=== PATIENT | male | born 1960 | race Caucasian/White ===

== ENCOUNTER 2017-07-11 08:11 | Day surgery (SDC) | payer MEDICAID, OTHER ==
[2017-07-11] MEDS ORDERED: LIDOCAINE 1% 2 ML INJ ONE (08:30)
[2017-07-11] MEDS ORDERED: LR 1,000 ML IV ONE (08:52)
[2017-07-11] MEDS ORDERED: LIDOCAINE 1% 2 ML INJ ID PRN (08:52)
[2017-07-11] MEDS ORDERED: PROPOFOL/EMULSION 500 MG/50 ML BOTTLE IV ONE (08:56)
[2017-07-11] MEDS ORDERED: fentaNYL 100 MCG/2 ML INJ ONE (08:56)
[2017-07-11] MEDS ORDERED: LIDOCAINE 2% 100 MG/5 ML SYR ONE (08:56)
--- NOTE | 2017-07-11 08:58 | PDANEPAE ---
ANE Past Medical History - Cardiovascular History Hx Hypertension: No Hx Arrhythmias: No Hx Chest Pain: No Hx Coronary Artery / Peripheral Vascular Disease: No Hx CHF / Valvular Disease: No Hx Palpitations: No - Pulmonary History Hx COPD: No Hx Asthma/Reactive Airway Disease: Yes Hx Recent Upper Respiratory Infection: No Hx Oxygen in Use at Home: No Hx Sleep Apnea: No Sleep Apnea Screening Result - Last Documented: Negative - Neurologic History Hx Cerebrovascular Accident: No Hx Seizures: No Hx Dementia: No Neurologic History Comment: SEVERAL PAST HEAD INJURIES. -LAST IN 2016 - COMA 2- 6 HRS - Endocrine History Hx Diabetes: No - Renal History Hx Renal Disorders: No Renal History Comment: BLOOD IN URINE IN PAST - Liver History Hx Hepatic Disorders: No - Neurological & Psychiatric Hx Hx Neurological and Psychiatric Disorders: Yes Neurological / Psychiatric History Comment: ANXIETY/DEPRESSION - ZOLOFT - Cancer History Hx Cancer: No - Congenital Disorder History Hx Congenital Disorders: No - GI History Hx Gastrointestinal Disorders: Yes Gastrointestinal History Comment: RECENT BLOOD IN STOOL - ALSO IN PAST - Other Health History Other Health History: NEG - Chronic Pain History Chronic Pain: Yes (BACK PAIN, L HIP, R SHOULDER) - Surgical History Prior Surgeries: COLONOSCOPY ANE Review of Systems Review of Systems: - Exercise capacity METS (RN): 4 METS ANE Patient History - Allergies Allergies/Adverse Reactions: No Known Allergies Allergy (Unverified 07/06/17 11:26) - Home Medications Home Medications: Albuterol Hfa Anes Only 07/06/17 [Last Taken 07/11/17] Ibuprofen 07/06/17 [Last Taken 07/06/17] Zoloft 100mg (*) 07/06/17 [Last Taken 07/10/17] - NPO status NPO Since - Liquids (Date): 07/10/17 NPO Since - Liquids (Time): 03:00 NPO Since - Solids (Date): 07/10/17 NPO Since - Solids (Time): 13:00 - Smoking Hx Smoking Status: Heavy smoker - Family Anes Hx Family Hx Anesthesia Complications: NEG ANE Labs/Vital Signs - Vital Signs Blood Pressure: 132/93 Heart Rate: 97 Respiratory Rate: 18 O2 Sat (%): 93 Height: 179.07 cm Weight: 69.853 kg ANE Physical Exam - Airway Neck exam: FROM Mallampati Score: Class 2 Mouth exam: poor dentition - Pulmonary Pulmonary: no respiratory distress - Cardiovascular Cardiovascular: regular rate and rhythym - ASA Status ASA Status: II ANE Anesthesia Plan Total IV Anesthesia: Yes
--- NOTE | 2017-07-11 09:45 | PDGENHP ---
History & Physical Chief Complaint: Heme postivie stools History of Present Illness: Pt denies BRBPR to me Pertinent Past, Social, Family History: RAD, [facility] Relevant Physical Exam: CV rrr s1s2 nl. chest CTA. Abd + bs soft Cardiorespiratory Assessment: ASA II
[2017-07-11] MEDS ORDERED: PROPOFOL 200 MG/20 ML VIAL ONE (10:16)
--- NOTE | 2017-07-11 10:42 | GIREPORT ---
[facility] Surgical Services - Endoscopy Department Patient Name: Mathew Presley Procedure Date: 07/11/2017 9:20 AM Patient Type: Outpatient Attending / ER Physician: Lillie Head MD Procedure: Colonoscopy Indications: Heme positive stool Providers: Lillie Head MD Medicines: Monitored Anesthesia Care Complications: No immediate complications. Description of Procedure: After obtaining informed consent, the scope was passed under direct vis ion. Throughout the procedure, the patient's blood pressure, pulse, and oxyg en saturations were monitored continuously. The Colonoscope with irrigatio n channel was introduced through the anus and advanced to the cecum, identified by appendiceal orifice and ileocecal valve. The colonoscopy was performed without difficulty. The patient tolerated the procedure well. The quality of the bowel preparation was fair. The ileocecal valve, appendi ceal orifice, and rectum were photographed. Findings: The perianal and digital rectal examinations were normal. A 6 mm polyp was found in the descending colon. The polyp was sessile. The polyp was removed with a cold snare. Resection and retrieval were compl ete. Estimated blood loss was minimal. Two sessile polyps were found in the sigmoid colon. The polyps were 10 to 11 mm in size. These polyps were removed with a hot snare. Resection and retrieval were complete. Estimated blood loss: none. Two pedunculated polyps were found at 35 cm proximal to the anus. The p olyps were 10 to 20 mm in size. These polyps were removed with a hot snare. Resection and retrieval were complete. Estimated blood loss: none. A 10 mm polyp was found in the rectum. The polyp was sessile. The polyp was removed with a hot snare. Resection and retrieval were complete. Estima tova blood loss: none. Hemorrhoids were found during retroflexion. Estimated Blood Loss: Estimated blood loss was minimal. Post Op Diagnosis: - Preparation of the colon was fair. - One 6 mm polyp in the descending colon, removed with a cold snare. Resected and retrieved. - Two 10 to 11 mm polyps in the sigmoid colon, removed with a hot snare . Resected and retrieved. - Two 10 to 20 mm polyps at 35 cm proximal to the anus, removed with a hot snare. Resected and retrieved. - One 10 mm polyp in the rectum, removed with a hot snare. Resected and retrieved. - Hemorrhoids. Recommendation: - Await pathology results. - Patient has a contact number available for emergencies. The signs and symptoms of potential delayed complications were discussed with the pat ient. Return to normal activities tomorrow. Written discharge instructions we re provided to the patient. - Resume previous diet. - Continue present medications. - No aspirin, ibuprofen, naproxen, or other non-steroidal anti-inflamma tory drugs for 2 weeks after polyp removal. - Repeat colonoscopy in 1 year for surveillance with anesthesia. - Discharge patient to home. - Thank you for allowing me to participate in the care of your patient. Attending Participation: I personally performed the entire procedure. Lillie Head MD Lillie Head MD 07/11/2017 10:42:03 AM This report has been signed electronicallyLillie Heda MD Number of Addenda: 0 Note Initiated On: 07/11/2017 9:20 AM Total Procedure Duration Time 0 hours 43 minutes 24 seconds [email or web address]
[2017-07-11] MEDS ORDERED: ONDANSETRON 4 MG/2 ML VIAL IVP PRN (10:43)
[2017-07-11] MEDS ORDERED: NALOXONE HCL 0.4 MG/ML INJ IVP PRN (10:43)
[2017-07-11] MEDS ORDERED: fentaNYL 100 MCG/2 ML INJ IVP PRN (10:43)
[2017-07-11] MEDS ORDERED: ALBUTEROL 3 ML DEYVIAL IH PRN (10:43)
--- NOTE | 2017-07-11 10:44 | POSTANESTH ---
Post Anesthetic Evaluation Cardiovascular Status: Similar to Pre-Op Cond Respiratory Status: Similar to Pre-op Cond. Level of Consciousness/Mental Status: Mildly Sleepy, Arousable Pain Control: Adequate, Prn Tx Ordered Nausea/Vomiting Control: Adequate, Prn Tx Ordered
[2017-07-11 11:02] VITALS: TEMP 97.3
[2017-07-11 11:03] VITALS: RESP 16
[2017-07-11 11:08] VITALS: PULSE 58
[2017-07-11 11:14] VITALS: BP 124/88; O2SAT 95
== END 2017-07-11 11:40 | disposition home or self-care (01) ==
LOC: FSGY 08:11
PROVIDERS: ATTEND Internal Medicine Gastroenterology
PROC: 0DB Gastrointestinal System, Excision (ICD-10-PCS; principal; 2017-07-11 10:45)
PROC: 0DBP4ZX Excision of Rectum, Percutaneous Endoscopic Approach, Diagnostic (ICD-10-PCS; principal; 2017-07-11 10:45)
PROC: 0DBN4ZX Excision of Sigmoid Colon, Percutaneous Endoscopic Approach, Diagnostic (ICD-10-PCS; principal; 2017-07-11 10:45)
PROC: 0DBM4ZX Excision of Descending Colon, Percutaneous Endoscopic Approach, Diagnostic (ICD-10-PCS; principal; 2017-07-11 10:45)
DX: D12.4 Benign neoplasm of descending colon (principal); D12.5 Benign neoplasm of sigmoid colon; K62.0 Anal polyp; D12.8 Benign neoplasm of rectum; K64.9 Unspecified hemorrhoids
CPT/HCPCS: J2001; J2704; J3010